=== PATIENT | male | born 1970 | race Two or more races ===

== ENCOUNTER → 2017-12-19 | Outpatient (CLI) | payer OTHER ==
[2017-12-19 10:17] LABS: Basophils # (auto) 0.1 uL; Basophils % (auto) 0.8 % (0.0-2.0); Eosinophils # (auto) 0.1 uL; Hematocrit 43.8 % (41.0-53.0); Hemoglobin 15.4 g/dL (13.5-17.5); Lymphocytes # (auto) 3.2 uL; Lymphocytes % (auto) 43.5 % (10.0-50.0); Mean Corpuscular Hemoglobin 28.4 pg (28.0-32.0); Mean Corpuscular Hgb Conc. 35.1 g/dL (32.0-36.0); Mean Corpuscular Volume 80.8 fL (80.0-100.0); Monocytes # (auto) 0.8 uL; Monocytes % (auto) 11.2 % (0.0-12.0); Neutrophils # (auto) 3.1 uL; Neutrophils % (auto) 42.5 % (37.0-80.0); Platelet Count (auto) 280 10^3/uL (140-450); Red Blood Cells 5.42 10^6/uL (4.5-5.90); Red Cell Distribution Width 13.8 % (11.8-14.3); White Blood Cell 7.3 10^3/uL (4.4-10.8)
[2017-12-19 10:25] LABS: Urine Bacteria NONE SEEN /hpf (None Seen); Urine Blood TRACE /uL (Negative); Urine Mucus FEW (None Seen); Urine WBC 1 /hpf (0 - 3)
[2017-12-19 10:52] LABS: Albumin 3.8 g/dL (3.4-5.0); BUN/Creatinine Ratio 13.8; Bilirubin, Total 0.9 mg/dL (0.2-1.0); Calcium 8.8 mg/dL (8.5-10.1); Potassium 3.9 mmol/L (3.5-5.1); Total Protein 7.6 g/dL (6.4-8.2)
== END | disposition home or self-care (01) ==
LOC: LAB 09:58
PROVIDERS: ATTEND Nurse Practitioner
DX: E78.5 Hyperlipidemia, unspecified (principal); R79.89 Other specified abnormal findings of blood chemistry
CPT/HCPCS: 36415; 80053; 80061; 81001; 82306; 83036; 84153; 84403; 84443; 85025

== ENCOUNTER 2025-02-25 22:44 | Emergency (ER) | payer SELFPAY ==
[~2025-02-25] VITALS: Ht 177.8 cm; Wt 81.9 kg
[2025-02-26] MEDS: KETOROLAC TROMETH 30 MG/ML 1ML VIAL IM ONE (01:00)
[2025-02-26] MEDS: ACETAMINOPHEN 325 MG TAB PO ONE (01:03)
[2025-02-26] MEDS: BACITRACIN TOP OINT 1 UD PKG TOP ONE (01:03)
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
[2025-02-26] MEDS ORDERED: IBUP-1454 PO (02:38)
[2025-02-26] MEDS ORDERED: ACET650T12 PO (02:38)
[2025-02-26] MEDS: TETANUS-DIPTH-ACEL PERTUSSIS 0.5ML SYR Tdap IM ONE (02:45)
[2025-02-26 03:45] VITALS: BP 164/103; PULSE 76; TEMP 98.2; O2SAT 98
[2025-02-26 03:48] VITALS: RESP 18
== END 2025-02-26 03:52 | disposition home or self-care (01) ==
LOC: ER 22:44
DX: S00.01XA Abrasion of scalp, initial encounter (principal); S80.811A Abrasion, right lower leg, initial encounter; R51.9 Headache, unspecified; V89.2XXA Person injured in unspecified motor-vehicle accident, traffic, initial encounter; Y93.I9 Activity, other involving external motion; Y92.488 Other paved roadways as the place of occurrence of the external cause; Y99.8 Other external cause status
CPT/HCPCS: 70450; 72125; 90471; 90715; 96372; 99285; J1885

== ENCOUNTER → 2025-05-06 | Outpatient (CLI) | payer BC ==
[~2025-05-06] MED LIST: ACET650T12 PO; IBUP-1454 PO
[2025-05-06 09:38] LABS: Hematocrit 46.7 % (41.0-53.0); Hemoglobin 16.0 g/dL (13.5-17.5); Mean Corpuscular Hemoglobin 28.0 pg (28.0-32.0); Mean Corpuscular Volume 81.9 fL (80.0-100.0); Nucleated Red Blood Cells % 0.1 %
[2025-05-06 12:07] LABS: Alanine Aminotransferase 13 U/L (7-40); Alkaline Phosphatase 73 U/L (46-116); Anion Gap 8 (5-15); BUN/Creatinine Ratio 12.2 (10.0-20.0); Blood Urea Nitrogen 14 mg/dL (9-23); Calcium 8.9 mg/dL (8.7-10.4); Carbon Dioxide 27 mmol/L (20-31); Chloride 106 mmol/L (98-107); Glucose 95 mg/dL (74-106); Potassium 4.1 mmol/L (3.5-5.1); Sodium 141 mmol/L (136-145); Total Protein 6.7 g/dL (5.7-8.2); Triglycerides 117 mg/dL (< 150)
[2025-05-06 12:08] LABS: Albumin 3.9 g/dL (3.2-4.8)
[2025-05-06 12:09] LABS: Cholesterol 159 mg/dL (< 200)
[2025-05-06 12:15] LABS: Bilirubin, Total 1.3 mg/dL (0.2-1.0); HDL Cholesterol 38 mg/dL (40-59)
== END | disposition home or self-care (01) ==
LOC: LAB 08:50
PROVIDERS: ATTEND Nurse Practitioner Family
DX: I10 Essential (primary) hypertension (principal); R79.89 Other specified abnormal findings of blood chemistry; R35.1 Nocturia; Z00.01 Encounter for general adult medical examination with abnormal findings
CPT/HCPCS: 36415; 80053; 80061; 84153; 84443; 85025